=== PATIENT | female | born 1985 | race African-American/Black ===

== ENCOUNTER 2024-07-25 07:05 | Emergency (ER) | payer OTHER, SELFPAY ==
[2024-07-25 07:09] VITALS: BP 102/63
[2024-07-25] MEDS: TYLENOL 650 MG PO (07:38)
[2024-07-25 07:40] VITALS: BMI 33.2
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
[2024-07-25 09:00] LABS: % Basophils 0.3 % (0-2); % Eosinophils 2.4 % (0-6); % Immature Granulocytes 0.8 % (0-0.5); % Lymphocytes 15.9 % (20.5-51.1); % Neutrophils 69.6 % (42.2-75.2); Absolute Eosinophils 0.2 10^3/uL (0-0.7); Absolute Immature Granulocytes 0.1 10^3/uL (0-0.05); Absolute Lymphocytes 1.2 10^3/uL (1.2-3.4); Absolute Monocytes 0.8 10^3/uL (0.1-0.6); Absolute Neutrophils 5.3 10^3/uL (1.4-6.5); Hematocrit 22.5 % (37.0-47.0); Mean Corp Hgb Conc. 31.1 g/dL (33.0-37.0); Mean Corpuscular Hgb 26.7 pg (27.0-31.0); Mean Corpuscular Volume 85.9 fL (81.0-99.0); Mean Platelet Volume 9.8 fL (7.4-10.4); Nucleated Red Blood Cells % 0 %; Platelet Count 256 10^3/uL (130-400); Red Blood Cell Count 2.62 10^6/uL (4.20-5.40); Red Cell Dist. Width 19.9 % (11.5-14.5); White Blood Cell Count 7.6 10^3/uL (4.8-10.8)
[2024-07-25 09:12] LABS: ALT (SGPT) 24 U/L (0-35); AST (SGOT) 52 U/L (14-36); Albumin 3.5 g/dl (3.5-5.0); Alkaline Phosphatase 51 U/L (38-126); Blood Urea Nitrogen 5 mg/dl (7-17); Calcium 8.4 mg/dl (8.4-10.2); Carbon Dioxide 22 mmol/L (22-30); Chloride 109 mmol/L (98-107); Estimated Creatinine Clearance 88 ml/min; Glucose 97 mg/dl (70-99); Sodium 140 mmol/L (135-145); Total Bilirubin 1.1 mg/dl (0.2-1.3); eGFR > 60.00
[2024-07-25] MEDS: PERCOCET 5/325 1 TABLET PO (09:21)
[2024-07-25 14:13] VITALS: BP 109/76
== END 2024-07-25 14:15 | disposition home or self-care (01) ==
LOC: EMR 07:05
PROVIDERS: Physician Assistant; EMERGENCY PHYSICIAN Emergency Medicine
DX: R22.0 Localized swelling, mass and lump, head (principal); R22.31 Localized swelling, mass and lump, right upper limb; Y04.0XXA Assault by unarmed brawl or fight, initial encounter; Z79.01 Long term (current) use of anticoagulants; D64.9 Anemia, unspecified
CPT/HCPCS: 99284; 70450; 73090; 73130; 80053; 85025